=== PATIENT | female | born 1975 | race Caucasian/White ===

== ENCOUNTER 2020-02-28 12:48 | Outpatient (REF) | payer OTHER, SELFPAY ==
--- NOTE | 2020-02-28 12:51 | MM_ITS ---
EXAMINATION: MM SCREENING DIGITAL BREAST TOMOSYNTHESIS, BILATERAL CLINICAL INFORMATION: Screening. Asymptomatic. The lifetime risk of breast cancer based on the Tyrer-Cuzick Model is 7%. COMPARISON: Mammography: 06/15/2018, 05/02/2017, 01/22/2014 TECHNIQUE: Digital breast tomosynthesis is performed in both the craniocaudal and mediolateral oblique views along with computer-aided detection (CAD). Synthesized 2D images are generated from the tomosynthesis. FINDINGS: There are scattered areas of fibroglandular density (ACR BI-RADS breast composition Category b). Parenchymal pattern is similar to prior studies. There are scattered asymmetries posterior and central upper left breast which are stable from prior exams. There is no developing density or interval mass or architectural abnormality. Neither breast shows abnormal calcifications. The axilla and skin contours are unremarkable. MM/MM tomosynthesis screening BI IMPRESSION: No significant changes from prior studies. ASSESSMENT: BI-RADS 2: Benign RECOMMENDATION: Routine annual mammography screening. This patient's information was entered into a reminder system with a target due date for their next mammogram.
== END 2020-02-28 12:49 | disposition home or self-care (01) ==
LOC: HO.MAMMO 12:48
PROVIDERS: PCP Internal Medicine; Visit Provider Internal Medicine
DX: Z12.31 Encounter for screening mammogram for malignant neoplasm of breast (principal)
CPT/HCPCS: 77063; 77067

== ENCOUNTER 2021-03-23 15:25 | Outpatient (REF) | payer OTHER, SELFPAY ==
--- NOTE | ~2021-03-23 | MM_ITS ---
EXAMINATION: MM SCREENING DIGITAL MAMMOGRAPHY, BILATERAL CLINICAL INFORMATION: Screening. Asymptomatic. The lifetime risk of breast cancer based on the Tyrer-Cuzick Model is 6%. COMPARISON: Mammography: 02/28/2020, 06/15/2018, 05/02/2017, 01/22/2014 TECHNIQUE: Digital mammography is performed in craniocaudal and mediolateral oblique views along with computer-aided detection (CAD). Additional right MLO view is provided. FINDINGS: There are scattered areas of fibroglandular density (ACR BI-RADS breast composition Category b). There are no significant masses, abnormal calcifications, or other abnormalities. Parenchymal pattern is similar to prior studies. There is no developing density or architectural abnormality. Scattered bilateral benign parenchymal asymmetries are stable. The axilla and skin contours are unremarkable. No significant changes. MM/MM tomosynthesis screening BI IMPRESSION: No mammographic evidence of malignancy. ASSESSMENT: BI-RADS 2: Benign RECOMMENDATION: Routine annual mammography screening. This patient's information was entered into a reminder system with a target due date for their next mammogram.
== END 2021-03-23 15:26 | disposition home or self-care (01) ==
LOC: HO.MAMMO 15:25
PROVIDERS: PCP Internal Medicine; Visit Provider Internal Medicine
DX: Z12.31 Encounter for screening mammogram for malignant neoplasm of breast (principal)
CPT/HCPCS: 77063; 77067

== ENCOUNTER 2022-03-25 12:44 | Outpatient (REF) | payer OTHER, SELFPAY ==
--- NOTE | ~2022-03-25 | MM_ITS ---
EXAMINATION: MM SCREENING DIGITAL BREAST TOMOSYNTHESIS, BILATERAL CLINICAL INFORMATION: Screening. Asymptomatic. The lifetime risk of breast cancer based on the Tyrer-Cuzick Model is 6.0%. COMPARISON: Mammography: March 23, 2021 and studies dating back to January 22, 2014 TECHNIQUE: Digital breast tomosynthesis is performed in both the craniocaudal and mediolateral oblique views along with computer-aided detection (CAD). Synthesized 2D images are generated from the tomosynthesis. FINDINGS: The breasts are heterogeneously dense, which may obscure small masses (ACR BI-RADS breast composition Category c). There are no significant masses, abnormal calcifications, or other abnormalities. MM/MM tomosynthesis screening BI IMPRESSION: No significant changes ASSESSMENT: BI-RADS 1: Negative RECOMMENDATION: Routine annual mammography screening. This patient's information was entered into a reminder system with a target due date for their next mammogram.
== END 2022-03-25 12:45 | disposition home or self-care (01) ==
LOC: HO.MAMMO 12:44
PROVIDERS: PCP Internal Medicine; Visit Provider Internal Medicine
DX: Z12.31 Encounter for screening mammogram for malignant neoplasm of breast (principal)
CPT/HCPCS: 77063; 77067

== ENCOUNTER → 2023-04-06 15:45 | Outpatient (BNV) | payer OTHER, SELFPAY | PROVIDERS: Visit Provider Radiology Diagnostic Radiology | DX: Z12.31 Encounter for screening mammogram for malignant neoplasm of breast (principal) | CPT/HCPCS: 77063; 77067 ==

== ENCOUNTER 2023-04-06 15:50 | Outpatient (REF) | payer OTHER, SELFPAY | END 2023-04-06 15:51 | disposition home or self-care (01) | LOC: HO.MAMMO 15:50 | PROVIDERS: Visit Provider Internal Medicine | DX: Z12.31 Encounter for screening mammogram for malignant neoplasm of breast (principal) | CPT/HCPCS: 77063; 77067 ==

== ENCOUNTER 2023-07-19 08:48 | Outpatient (AMB) | payer OTHER, SELFPAY ==
[2023-07-19 08:52] VITALS: BP 126/78; PULSE 78; O2SAT 95; BMI 25.6
--- NOTE | 2023-07-19 08:52 | MHC.PC.OV ---
Vital Signs 07/19/23 08:52 Height 5 ft 3 in Weight 144 lb 8 oz BMI 25.6 BP 126/78 Blood Pressure Location Rt brachial Position Sitting Pulse 78 Pulse Source Pulse Oximeter Pulse Oximetry (%) 95 Oxygen Delivery Method Room Air Intake Visit Reasons: Annual PE Allergies ibuprofen Allergy (Unknown, Verified 07/19/23 08:53) Unknown buspirone [From BuSpar] Adverse Reaction (Verified 07/19/23 08:53) Irritability Medication List - Last Reconciled 07/19/23 by Amber Green MD cyclobenzaprine 5 mg PO BEDTIME PRN 90 days lorazepam 0.5 mg PO DAILY PRN 30 days Tobacco use date assessed: 07/19/23 Dental Screening Dental Screen Date: 07/19/23 Did you have a dental visit in the last 12 months?: Yes Did you have a dental problem in the last 6 months where you did not have access to dental care?: No Was dental information given to patient?: Patient has dentist HPI Annual PE HPI Details Patient is a 47-year-old female came in today for physical exam OBGYN is at [facility] patient will have visit this year Mammogram was March of this year Colonoscopies due, referral placed Patient offer no new complaints Lab order placed to be done today nonfasting as per patient's request [facility] Medical History Anxiety, generalized Kidney disease 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 Mother No problems noted. Maternal Grandfather Cardiac arrest Maternal Grandmother Diabetes mellitus Paternal Grandmother History of heart attack Heart problem Paternal Grandfather Colon cancer Brother No problems noted. Sister No problems noted. Son No problems noted. Social History Housing: House Alcohol intake: current Alcohol intake frequency: a few times a week Patient Tobacco Use Status: Current everyday Tobacco user Tobacco use type: Cigarette Cigarette Packs Per Day: 1 Cigarettes Per Day: 20 Years Smoked: 20 e-Cigarette/Vaping Use: Never Used service: No Current occupational status: employed Cognitive needs: No Hearing needs: No Vision needs: No Questionnaire PHQ-9 Over the last 2 weeks, how often have you been bothered by any of the following problems? 1. Little interest or pleasure in doing things: not at all 2. Feeling down, depressed, or hopeless: not at all 3. Trouble falling or staying asleep, or sleeping too much: not at all 4. Feeling tired or having little energy: not at all 5. Poor appetite or overeating: not at all 6. Feeling bad about yourself - or that you are a failure or have let yourself or your family down: not at all 7. Trouble concentrating on things, such as reading the newspaper or watching television: not at all 8. Moving or speaking so slowly that other people could have noticed. Or the opposite - being so fidgety or restless that you have been moving around a lot more than usual: not at all 9. Thoughts that you would be better off or of hurting yourself in some way: not at all Total score: 0 Depression Screening Interpretation: Negative Depression Screening Done: Yes 14333 - PHQ-9 Billing: Yes Source: Developed by Drs. Cristobal Langston, Mary Francois, Fish Rodriguez and colleagues, with an educational pool from [employer]. Thrive Questionnaire Date Thrive assessed: 07/19/23 I am a: Patient What is your living situation today?: I have a steady place to live Within the past 12 months, did the food you bought not last and you didn't have the money to get more?: Never true Within the past 12 months, did you worry whether your food would run out before you got money to buy more?: Never true Do you have trouble paying for medicines?: No Do you have trouble getting transportation to medical appointments?: No Do you have trouble paying your heating and electricity bill?: No Do you have trouble taking care of your child, family member or friend?: No Do you have trouble with day-to-day activities such as bathing, preparing meals, shopping, managing finances, etc.?: No Are you currently unemployed and looking for a job?: No Are you interested in more education?: No Please select the resources that you would like help with: None Currently or been in a relationship where the following occur: no concerns reported THRIVE Score: 0 AUDIT C Alcohol Use Questionnaire (AUDIT-C) 1. How often do you have a drink containing alcohol?: Monthly or less 2. How many drinks containing alcohol do you have on a typical day when you are drinking?: 1 or 2 3. How often do you have six or more drinks on one occasion?: Never Total Score: 1 Score Reviewed/Action Taken: Yes JUDIE-7 AMB Questionnaire JUDIE-7 Date JUDIE - 7 assessed: 07/19/23 Feeling nervous, anxious, or on edge: 0 = Not at all Not being able to stop or control worryin = Not at all Worrying too much about different things: 0 = Not at all Trouble relaxin = Not at all Being so restless that it is hard to sit still: 0 = Not at all Becoming easily annoyed or irritable: 0 = Not at all Feeling afraid as if something awful might happen: 0 = Not at all Total JUDIE-7 score (0-4 normal; 5-9 mild; 10-14 moderate; 15-21 severe): 0 Source: Developed by Drs. Cristobal Langston, Mary Francois, Fish Rodriguez and colleagues, with an educational pool from [employer]. JUDIE-7 Assessment Billing JUDIE-7 Assessment Tool: JUDIE-7 Assessment 46153 Review of Systems Const Denies chills, Denies fever(s) and Denies headache(s) Eyes Denies blurry vision ENT Denies headache(s), Denies nasal discharge, Denies nasal obstruction, Denies odynophagia and Denies sinus pain Card Denies chest pain at rest and Denies chest pain with activity Resp Denies cough and Denies hemoptysis GI Denies diarrhea, Denies odynophagia, Denies vomiting and Denies hematemesis Reports as per HPI Musc Denies abnormal gait Skin/Breast Reports as per HPI Neuro Denies Neuro-related abnormal movements, Denies Abnormal speech present, Denies abnormal gait, Denies headache(s) and Denies Sensory deficit (Neuro) Psych Denies mood swings and Denies paranoia Endo Reports as per HPI Antonio/Lymph Reports as per HPI Aller/Immun Reports as per HPI Physical exam (Primary Care) Vital Signs: Last Vital Signs Pulse 78 07/19/23 08:52 BP 126/78 07/19/23 08:52 Pulse Ox 95 07/19/23 08:52 Oxygen Delivery Method Room Air 07/19/23 08:52 BMI result Body Mass Index 25.6 Tobacco/Smoking Status: Tobacco use Status Tobacco use date assessed 07/19/23 07/19/23 08:54 Patient Tobacco Use Status Current everyday Tobacco 07/19/23 08:54 Tobacco use type Cigarette 07/19/23 08:54 e-Cigarette/Vaping Use Never Used 07/19/23 08:54 PHQ-9: PHQ-9 Score PHQ-9: Total score 0 07/19/23 09:12 Depression Screening Interpretation: Negative Thrive Assessment: Date of Thrive Assessment Date Thrive assessed 07/19/23 07/19/23 09:12 Currently or been in a relationship where the following occur: no concerns reported Const General: cooperative, comfortable and no acute distress Orientation/consciousness: patient oriented x3 HENMT Head: Yes normocephalic and Yes atraumatic Eyes General: appearance normal, both eyes and all related structures Pupils: Equal, round and reactive pupils present EOM: EOMs intact bilaterally Neck Neck: Yes supple and No lymphadenopathy Thyroid: Thyroid normal Lymphatic: no lymphadenopathy noted Resp Effort & Inspection: normal respiratory effort and able to speak in complete sentences Auscultation: clear to auscultation bilaterally Cardio Heart sounds: S1 normal heart sound present and S2 normal heart sound present GI Palpation (GI): Soft to palpation and nontender Auscultation: normal bowel sounds General: Yes no CVA tenderness Back/Spine/Pelvis Back: no CVA tenderness Skin General skin exam: elasticity normal and turgor normal Neuro General: patient oriented x3 and gait normal Cranial nerves: Yes Equal, round and reactive pupils present Speech: No Abnormal speech present Sensory Exam: No Sensory deficit (Neuro) Coordination: tandem gait normal and Romberg test negative Extrem General: Yes normal exam except as noted and No edema Assessment and Plan Assessment & Plan (1) Encounter for general adult medical examination without abnormal findings: Code(s): Z00.00 - Encounter for general adult medical examination without abnormal findings Plan Patient is a 47-year-old female came in today for physical exam OBGYN is at [facility] patient will have visit this year Mammogram was March of this year Colonoscopies due, referral placed Patient offer no new complaints Lab order placed to be done today nonfasting as per patient's request Orders: Orders Comprehensive Met. Panel Today Z00.00 - Encounter for general adult medical examination without abnormal findings Vitamin D 25-OH (D2 and D3) Today Z00.00 - Encounter for general adult medical examination without abnormal findings LDL Cholesterol Direct Today Z00.00 - Encounter for general adult medical examination without abnormal findings Complete Blood Count Auto Diff Today Z00.00 - Encounter for general adult medical examination without abnormal findings Referrals Gastroenterology Referral Z12.11 - Encounter for screening for malignant neoplasm of colon Medications: Discontinued cyclobenzaprine Discontinued Reason: Patient Completed Course 5 mg PO BEDTIME 90 days PRN 90 tabs 0RF muscle spasm M54.9 - Dorsalgia, unspecified lorazepam Discontinued Reason: Patient Completed Course 0.5 mg PO DAILY 30 days PRN 30 tabs 1RF anxiety Coding Level of Care Code Est Pt Prev Care 40-64y(51652) Diagnoses Encounter for general adult medical examination without abnormal findings Z00.00 Additional Codes JUDIE-7 Assessment Billing - JUDIE-7 Assessment Tool: JUDIE-7 Assessment 43604 ([id number])
== END 2023-07-19 09:08 | disposition home or self-care (01) ==
PROVIDERS: PCP Internal Medicine; Visit Provider Internal Medicine
DX: Z00.00 Encounter for general adult medical examination without abnormal findings (principal)
CPT/HCPCS: 99396

== ENCOUNTER 2023-07-19 09:08 | Outpatient (REF) | payer OTHER, SELFPAY ==
[2023-07-19 10:47] LABS: MANUAL DIFF FLAG NO
[2023-07-19 10:57] LABS: Basophils Absolute Auto 0.1 X10*3/uL (0.0-0.2); Basophils Percent Auto 0.7 % (0-2); Eosinophils Absolute Auto 0.3 X10*3/uL (0.0-0.4); Eosinophils Percent Auto 2.1 % (0-4); Hematocrit 44.3 % (37.0-47.0); Hemoglobin 14.5 g/dl (12.0-16.0); Imm Gran Abs Auto 0.05 X10*3/uL (0.00-0.03); Imm Gran Pct Auto 0.4 % (0.0-0.4); Lymphocytes Absolute Auto 2.2 X10*3/uL (1.2-4.9); Lymphocytes Percent Auto 18.8 % (20-40); Mean Corpuscular HGB Conc 32.7 g/dl (31.0-35.0); Mean Corpuscular Hemoglobin 30.6 pg (27.0-33.0); Mean Corpuscular Volume 93.5 fL (80.0-98.0); Monocytes Absolute Auto 0.6 X10*3/uL (0.1-1.2); Neutrophils Absolute Auto 8.5 x10*3/uL (2.0-8.3); Platelet Count 344 X10*3/uL (160-400); Red Blood Count 4.74 X10*6/uL (4.20-5.50); Red Cell Distribution Width 13.1 % (11.0-16.0); White Blood Count 11.7 X10*3/uL (4.8-10.8)
[2023-07-19 11:14] LABS: Alanine Aminotransferase 18 U/L (0-31); Albumin Level 4.5 g/dL (3.5-5.0); Alkaline Phosphatase 96 U/L (39-117); Anion Gap 13 (12-20); Aspartate Amino Transferase 20 U/L (5-31); Bilirubin Total 0.3 mg/dL (0.0-1.0); Blood Urea Nitrogen 10 mg/dL (9-16); Calcium 9.7 mg/dL (8.4-10.2); Carbon Dioxide 26 mmol/L (22-29); Chloride 108 mmol/L (96-108); Estimated Glomerular Filt Rate 56; Glucose Random 102 mg/dL (60-115); Potassium 4.8 mmol/L (3.3-5.1); Sodium 142 mmol/L (135-145); Total Protein 7.8 g/dL (6.5-8.0)
[2023-07-21 16:08] LABS: LDL Cholesterol Direct 187 mg/dL (<100)
[2023-07-24 16:18] LABS: Vitamin D 25-OH, D2 <4 ng/mL; Vitamin D 25-OH, D3 41 ng/mL; Vitamin D 25-OH, Total 41 ng/mL (30-100)
== END 2023-07-19 09:09 | disposition home or self-care (01) ==
LOC: HO.HMGCLDS 09:08
PROVIDERS: PCP Internal Medicine; Visit Provider Internal Medicine
DX: Z00.00 Encounter for general adult medical examination without abnormal findings (principal)
CPT/HCPCS: 36415; 80053; 82306; 83721; 85025

== ENCOUNTER 2023-12-20 13:01 | Outpatient (AMB) | payer OTHER, SELFPAY ==
[2023-12-20 13:03] VITALS: BP 102/72; PULSE 85; O2SAT 96; BMI 25.5
--- NOTE | 2023-12-20 13:03 | MHC.PC.OV ---
Vital Signs 12/20/23 13:03 Height 5 ft 3 in Weight 144 lb BMI 25.5 BP 102/72 Blood Pressure Location Lt brachial Position Sitting Pulse 85 Pulse Source Pulse Oximeter Pulse Oximetry (%) 96 Oxygen Delivery Method Room Air Intake Visit Reasons: lump Allergies ibuprofen Allergy (Unknown, Verified 12/20/23 13:07) Unknown buspirone [From BuSpar] Adverse Reaction (Verified 12/20/23 13:07) Irritability Medication List - Last Reconciled 12/20/23 by Amber Green MD No Known Home Meds Tobacco use date assessed: 12/20/23 Dental Screening Dental Screen Date: 07/19/23 HPI lump HPI Details Patient is a 48-year-old female came in today to be evaluated for few medical problems Patient says that for the past few weeks she is feeling extremely tired and fatigued To the point that 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 Mother No problems noted. Maternal Grandfather Cardiac arrest Maternal Grandmother Diabetes mellitus Paternal Grandmother History of heart attack Heart problem Paternal Grandfather Colon cancer Brother No problems noted. Sister No problems noted. Son No problems noted. Social History Housing: House Alcohol intake: current Alcohol intake frequency: a few times a week Patient Tobacco Use Status: Current everyday Tobacco user Tobacco use type: Cigarette Cigarette Packs Per Day: 1 Cigarettes Per Day: 20 Years Smoked: 20 e-Cigarette/Vaping Use: Never Used service: No Current occupational status: employed Cognitive needs: No Hearing needs: No Vision needs: No Questionnaire PHQ-9 Over the last 2 weeks, how often have you been bothered by any of the following problems? 1. Little interest or pleasure in doing things: not at all 2. Feeling down, depressed, or hopeless: not at all 3. Trouble falling or staying asleep, or sleeping too much: nearly every day 4. Feeling tired or having little energy: nearly every day 5. Poor appetite or overeating: not at all 6. Feeling bad about yourself - or that you are a failure or have let yourself or your family down: not at all 7. Trouble concentrating on things, such as reading the newspaper or watching television: not at all 8. Moving or speaking so slowly that other people could have noticed. Or the opposite - being so fidgety or restless that you have been moving around a lot more than usual: not at all 9. Thoughts that you would be better off or of hurting yourself in some way: not at all Total score: 6 Depression Screening Interpretation: Negative Depression Screening Done: Yes 35807 - PHQ-9 Billing: Yes Source: Developed by Drs. Cristobal Langston, Mary Francois, Fish Rodriguez and colleagues, with an educational pool from [employer]. Thrive Questionnaire Date Thrive assessed: 07/19/23 I am a: Patient What is your living situation today?: I have a steady place to live Within the past 12 months, did the food you bought not last and you didn't have the money to get more?: Never true Within the past 12 months, did you worry whether your food would run out before you got money to buy more?: Never true Do you have trouble paying for medicines?: No Do you have trouble getting transportation to medical appointments?: No Do you have trouble paying your heating and electricity bill?: No Do you have trouble taking care of your child, family member or friend?: No Do you have trouble with day-to-day activities such as bathing, preparing meals, shopping, managing finances, etc.?: No Are you currently unemployed and looking for a job?: No Are you interested in more education?: No Please select the resources that you would like help with: None Currently or been in a relationship where the following occur: No concerns reported THRIVE Score: 0 AUDIT C Alcohol Use Questionnaire (AUDIT-C) 1. How often do you have a drink containing alcohol?: 2-4 times a month 2. How many drinks containing alcohol do you have on a typical day when you are drinking?: 1 or 2 3. How often do you have six or more drinks on one occasion?: Never Total Score: 2 JUDIE-7 AMB Questionnaire JUDIE-7 Date JUDIE - 7 assessed: 07/19/23 Feeling nervous, anxious, or on edge: 0 = Not at all Not being able to stop or control worryin = Not at all Worrying too much about different things: 0 = Not at all Trouble relaxin = Not at all Being so restless that it is hard to sit still: 0 = Not at all Becoming easily annoyed or irritable: 0 = Not at all Feeling afraid as if something awful might happen: 0 = Not at all Total JUDIE-7 score (0-4 normal; 5-9 mild; 10-14 moderate; 15-21 severe): 0 Source: Developed by Drs. Cristobal Langston, Mary Francois, Fish Rodriguez and colleagues, with an educational pool from [employer]. Review of Systems Const Denies chills and Denies fever(s) ENT Denies epistaxis and Denies nasal discharge Resp Denies chest congestion, Denies cough and Denies hemoptysis GI Denies diarrhea and Denies nausea Skin/Breast Denies rash Neuro Reports no additional complaints Psych Reports no additional complaints Endo Reports no additional complaints Physical exam (Primary Care) Vital Signs: Last Vital Signs Pulse 85 12/20/23 13:03 BP 102/72 12/20/23 13:03 Pulse Ox 96 12/20/23 13:03 Oxygen Delivery Method Room Air 12/20/23 13:03 BMI result Body Mass Index 25.5 Tobacco/Smoking Status: Tobacco use Status Tobacco use date assessed 12/20/23 12/20/23 13:08 Patient Tobacco Use Status Current everyday Tobacco 12/20/23 13:08 Tobacco use type Cigarette 12/20/23 13:08 e-Cigarette/Vaping Use Never Used 12/20/23 13:08 PHQ-9: PHQ-9 Score PHQ-9: Total score 6 12/20/23 13:20 Depression Screening Interpretation: Negative Thrive Assessment: Date of Thrive Assessment Date Thrive assessed 07/19/23 12/20/23 13:08 Currently or been in a relationship where the following occur: No concerns reported Const General: cooperative, comfortable and no acute distress Orientation/consciousness: patient oriented x3 HENMT Head: Yes normocephalic Eyes General: appearance normal, both eyes and all related structures Neck Neck: Yes supple Resp Effort & Inspection: normal respiratory effort, no cough and no stridor Cardio Rhythm: regular rhythm Heart sounds: S1 normal heart sound present and S2 normal heart sound present GI Inspection: Yes normal to inspection Palpation (GI): Soft to palpation, nontender and no guarding Auscultation: normal bowel sounds Skin General skin exam: turgor normal Neuro General: patient oriented x3, tone normal and moves all extremities Extrem Right lower extremity: no edema Left lower extremity: no edema Coding Level of Care Code Est Pt Level 4 (45899) Diagnoses Chronic fatigue R53.82 Fatigue type: chronic, unspecified Lack of energy R53.83 Esophageal dysphagia R13.19 Dysphagia type: esophageal phase Burning in the chest R07.89 History of gastroesophageal reflux (GERD) Z87.19 Assessment & Plan Assessment & Plan (1) Fatigue: Code(s): R53.83 - Other fatigue Category: Medical Qualifiers: Fatigue type: chronic, unspecified Qualified Code(s): R53.82 - Chronic fatigue, unspecified (2) Lack of energy: Code(s): R53.83 - Other fatigue Category: Medical (3) Difficulty swallowing: Code(s): R13.10 - Dysphagia, unspecified Category: Medical Qualifiers: Dysphagia type: esophageal phase Qualified Code(s): R13.19 - Other dysphagia (4) Burning in the chest: Code(s): R07.89 - Other chest pain Category: Medical (5) History of gastroesophageal reflux (GERD): Code(s): Z87.19 - Personal history of other diseases of the digestive system Category: Medical Plan Patient is a 48-year-old female came in today to be evaluated for few medical problems Patient says that for the past few weeks she is feeling extremely tired and fatigued To the point that 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 [facility] as per patient's request She is to return in 2 weeks for follow-up appointment Orders: Orders Complete Blood Count Auto Diff Today R07.89 - Other chest pain, R13.10 - Dysphagia, unspecified, R53.83 - Other fatigue, Z87.19 - Personal history of other diseases of the digestive system TSH reflex Free T4 Today R07.89 - Other chest pain, R13.10 - Dysphagia, unspecified, R53.83 - Other fatigue, Z87.19 - Personal history of other diseases of the digestive system Vitamin D 25-OH (D2 and D3) Today R07.89 - Other chest pain, R13.10 - Dysphagia, unspecified, R53.83 - Other fatigue, Z87.19 - Personal history of other diseases of the digestive system Zinc Today R07.89 - Other chest pain, R13.10 - Dysphagia, unspecified, R53.83 - Other fatigue, Z87.19 - Personal history of other diseases of the digestive system Lipid Panel Today R07.89 - Other chest pain, R13.10 - Dysphagia, unspecified, R53.83 - Other fatigue, Z87.19 - Personal history of other diseases of the digestive system Hemoglobin A1c Today R07.89 - Other chest pain, R13.10 - Dysphagia, unspecified, R53.83 - Other fatigue, Z87.19 - Personal history of other diseases of the digestive system Magnesium Today R07.89 - Other chest pain, R13.10 - Dysphagia, unspecified, R53.83 - Other fatigue, Z87.19 - Personal history of other diseases of the digestive system Ferritin Today R07.89 - Other chest pain, R13.10 - Dysphagia, unspecified, R53.83 - Other fatigue, Z87.19 - Personal history of other diseases of the digestive system Vitamin B12 Today R07.89 - Other chest pain, R13.10 - Dysphagia, unspecified, R53.83 - Other fatigue, Z87.19 - Personal history of other diseases of the digestive system Comprehensive [place]. Panel Fast Today R07.89 - Other chest pain, R13.10 - Dysphagia, unspecified, R53.83 - Other fatigue, Z87.19 - Personal history of other diseases of the digestive system Referrals Gastroenterology Referral R07.89 - Other chest pain, R13.10 - Dysphagia, unspecified Medications: New sucralfate (Carafate) swish in mouth and swallow; use after food/drink 10 mL PO TID 15 days 450 mL 0RF pantoprazole 40 mg PO DAILY 90 tabs 0RF
== END 2023-12-20 13:23 | disposition home or self-care (01) ==
LOC: HO.HMCC 13:02
PROVIDERS: PCP Internal Medicine; Visit Provider Internal Medicine
DX: R53.82 Chronic fatigue, unspecified (principal); R53.83 Other fatigue; R13.19 Other dysphagia; R07.89 Other chest pain; Z87.19 Personal history of other diseases of the digestive system

== ENCOUNTER → 2023-12-20 13:01 | Outpatient (BNVA) | payer OTHER, SELFPAY | PROVIDERS: PCP Internal Medicine; Visit Provider Internal Medicine ==

== ENCOUNTER 2023-12-22 07:31 | Outpatient (REF) | payer OTHER, SELFPAY ==
[2023-12-22 10:24] LABS: MANUAL DIFF FLAG NO
[2023-12-22 10:36] LABS: Basophils Absolute Auto 0.1 X10*3/uL (0.0-0.2); Basophils Percent Auto 0.9 % (0-2); Eosinophils Absolute Auto 0.2 X10*3/uL (0.0-0.4); Eosinophils Percent Auto 2.7 % (0-4); Hematocrit 43.7 % (37.0-47.0); Hemoglobin 14.1 g/dl (12.0-16.0); Imm Gran Abs Auto 0.01 X10*3/uL (0.00-0.03); Imm Gran Pct Auto 0.1 % (0.0-0.4); Lymphocytes Absolute Auto 2.3 X10*3/uL (1.2-4.9); Mean Corpuscular HGB Conc 32.3 g/dl (31.0-35.0); Mean Corpuscular Hemoglobin 29.8 pg (27.0-33.0); Mean Corpuscular Volume 92.4 fL (80.0-98.0); Monocytes Absolute Auto 0.5 X10*3/uL (0.1-1.2); Neutrophils Absolute Auto 4.5 x10*3/uL (2.0-8.3); Neutrophils Percent Auto 60.3 % (45-73); Platelet Count 348 X10*3/uL (160-400); Red Blood Count 4.73 X10*6/uL (4.20-5.50); Red Cell Distribution Width 13.5 % (11.0-16.0); White Blood Count 7.5 X10*3/uL (4.8-10.8)
[2023-12-22 11:04] LABS: Estimated Average Glucose 108 mg/dL; Hemoglobin A1C 124.5404 umol/L; Hemoglobin A1c % 5.4 % (<6.0); Total Hemoglobin (HGBA1C) 3529.2477 umol/L
[2023-12-22 11:24] LABS: Ferritin 125 ng/mL (10-250); Magnesium 2.4 mg/dL (1.6-2.6); TSH reflex Free T4 0.96 uIU/mL (0.32-4.0)
[2023-12-22 11:44] LABS: Vitamin B12 462 pg/mL (200-900)
[2023-12-26 18:04] LABS: Zinc 63 mcg/dL (60-130)
[2023-12-28 14:23] LABS: Vitamin D 25-OH, D2 <4 ng/mL; Vitamin D 25-OH, D3 36 ng/mL; Vitamin D 25-OH, Total 36 ng/mL (30-100)
== END 2023-12-22 07:32 | disposition home or self-care (01) ==
LOC: HO.HMGCLDS 07:31
PROVIDERS: PCP Internal Medicine; Visit Provider Internal Medicine
DX: R53.83 Other fatigue (principal); R13.10 Dysphagia, unspecified; R07.89 Other chest pain; Z87.19 Personal history of other diseases of the digestive system; Z13.1 Encounter for screening for diabetes mellitus
CPT/HCPCS: 36415; 82306; 82607; 82728; 83036; 83735; 84443; 84630; 85025

== ENCOUNTER 2023-12-23 07:00 | Outpatient (REF) | payer OTHER, SELFPAY ==
[2023-12-23 11:36] LABS: Alanine Aminotransferase 23 U/L (0-31); Albumin Level 4.3 g/dL (3.5-5.0); Alkaline Phosphatase 76 U/L (39-117); Anion Gap 12 (12-20); Aspartate Amino Transferase 29 U/L (5-31); Bilirubin Total 0.5 mg/dL (0.0-1.0); Blood Urea Nitrogen 12 mg/dL (9-16); Calcium 10.1 mg/dL (8.4-10.2); Carbon Dioxide 27 mmol/L (22-29); Chloride 106 mmol/L (96-108); Cholesterol 261 mg/dL (<200); Estimated Glomerular Filt Rate > 60; Glucose Fasting 102 mg/dL (60-99); HDL Cholesterol 37 mg/dL (>40); LDL Cholesterol Calculated 201 mg/dL (<100); Potassium 4.5 mmol/L (3.3-5.1); Sodium 140 mmol/L (135-145); Total Protein 7.4 g/dL (6.5-8.0); Triglycerides 118 mg/dL (<150)
== END 2023-12-23 07:01 | disposition home or self-care (01) ==
LOC: HO.HMGCLDS 07:00
PROVIDERS: PCP Internal Medicine; Visit Provider Internal Medicine
DX: R53.83 Other fatigue (principal); R07.89 Other chest pain; Z87.19 Personal history of other diseases of the digestive system; R13.10 Dysphagia, unspecified
CPT/HCPCS: 36415; 80053; 80061

== ENCOUNTER 2023-12-28 08:37 | Outpatient (AMB) | payer OTHER, SELFPAY ==
--- NOTE | 2023-12-28 09:04 | A.OFFPC_ITS ---
Intake Visit Reasons: Discuss Results Allergies ibuprofen Allergy (Unknown, Verified 12/28/23 09:05) Unknown buspirone [From BuSpar] Adverse Reaction (Verified 12/28/23 09:05) Irritability Medication List - Last Reconciled 12/28/23 by Amber Green MD pantoprazole 40 mg PO DAILY sucralfate (Carafate) 10 mL PO TID 15 days Tobacco use date assessed: 12/28/23 Dental Screening Dental Screen Date: 12/28/23 Did you have a dental visit in the last 12 months?: Yes Did you have a dental problem in the last 6 months where you did not have access to dental care?: No Was dental information given to patient?: Patient has dentist HPI Discuss Results HPI Details Patient is a 48-year-old female this is a telemedicine visit to go over labs Her LDL came back at 201 Lab values discussed with the patient and it significance She is also prediabetic She agreed to be started on small dose of statin Atorvastatin 10 mg with Q 10 sent She is to repeat labs again in 2 months [facility] Medical History Anxiety, generalized Kidney disease 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 Mother No problems noted. Maternal Grandfather Cardiac arrest Maternal Grandmother Diabetes mellitus Paternal Grandmother History of heart attack Heart problem Paternal Grandfather Colon cancer Brother No problems noted. Sister No problems noted. Son No problems noted. Social History Housing: House Alcohol intake: current Alcohol intake frequency: a few times a week Patient Tobacco Use Status: Current everyday Tobacco user Tobacco use type: Cigarette Cigarette Packs Per Day: 1 Cigarettes Per Day: 20 Years Smoked: 20 e-Cigarette/Vaping Use: Never Used service: No Current occupational status: employed Cognitive needs: No Hearing needs: No Vision needs: No Questionnaire Thrive Questionnaire Date Thrive assessed: 07/19/23 AUDIT C Alcohol Use Questionnaire (AUDIT-C) 1. How often do you have a drink containing alcohol?: 2-4 times a month 2. How many drinks containing alcohol do you have on a typical day when you are drinking?: 1 or 2 3. How often do you have six or more drinks on one occasion?: Never Total Score: 2 Score Reviewed/Action Taken: Yes JUDIE-7 AMB Questionnaire JUDIE-7 Date JUDIE - 7 assessed: 07/19/23 Source: Developed by Drs. Cristobal Langston, Mary Francois, Fish Rodriguez and colleagues, with an educational pool from [employer]. Review of Systems Const Denies chills and Denies fever(s) ENT Denies epistaxis and Denies nasal discharge Card Denies chest pain Resp Denies chest congestion, Denies cough and Denies hemoptysis GI Denies diarrhea and Denies nausea Skin/Breast Denies rash Neuro Reports no additional complaints Psych Reports no additional complaints Endo Reports no additional complaints Physical exam (Primary Care) Tobacco/Smoking Status: Tobacco use Status Tobacco use date assessed 12/28/23 12/28/23 09:05 Patient Tobacco Use Status Current everyday Tobacco 12/28/23 09:05 Tobacco use type Cigarette 12/28/23 09:05 e-Cigarette/Vaping Use Never Used 12/28/23 09:05 Thrive Assessment: Date of Thrive Assessment Date Thrive assessed 07/19/23 12/28/23 09:05 Telehealth Telehealth Telehealth Platform: Relevant e-solution Location of provider rendering services: practice address Location of patient: address on file Patient Identification confirmed using: Name, : Yes Telehealth method: voice only Patient verbally consented to treatment: Yes Patient verbally consented to billing insurance company: Yes Patient informed of any privacy concerns related to visit: Yes Minutes spent on Phone/Video with Pt.: 13 Coding Level of Care Code Tele Est Pt Level 3 (63188) Diagnoses Lipid disorder E78.9 Prediabetes R73.03 Assessment & Plan Assessment & Plan (1) Lipid disorder: Code(s): E78.9 - Disorder of lipoprotein metabolism, unspecified Category: Medical (2) Prediabetes: Code(s): R73.03 - Prediabetes Category: Medical Plan Patient is a 48-year-old female this is a telemedicine visit to go over labs Her LDL came back at 201 Lab values discussed with the patient and it significance She is also prediabetic She agreed to be started on small dose of statin Atorvastatin 10 mg with Q 10 sent She is to repeat labs again in 2 months Orders: Orders Comprehensive [place]. Panel Fast 12/28/23 E78.9 - Disorder of lipoprotein metabolism, unspecified Lipid Panel 12/28/23 E78.9 - Disorder of lipoprotein metabolism, unspecified Medications: New coenzyme Q10 50 mg PO DAILY 90 caps 0RF atorvastatin 10 mg PO BEDTIME 90 tabs 0RF
== END 2023-12-28 12:07 | disposition home or self-care (01) ==
LOC: HO.HMCC 08:37
PROVIDERS: PCP Internal Medicine; Visit Provider Internal Medicine
DX: E78.9 Disorder of lipoprotein metabolism, unspecified (principal); R73.03 Prediabetes

== ENCOUNTER → 2023-12-28 08:37 | Outpatient (BNVA) | payer OTHER, SELFPAY | PROVIDERS: PCP Internal Medicine; Visit Provider Internal Medicine ==

== ENCOUNTER → 2024-03-29 10:28 | Outpatient (BNVA) | payer OTHER, SELFPAY | PROVIDERS: PCP Internal Medicine; Visit Provider Internal Medicine | DX: E78.5 Hyperlipidemia, unspecified (principal); K59.00 Constipation, unspecified; N05.1 Unspecified nephritic syndrome with focal and segmental glomerular lesions; R53.83 Other fatigue; Z87.19 Personal history of other diseases of the digestive system; Z79.899 Other long term (current) drug therapy | CPT/HCPCS: 96127 ==

== ENCOUNTER → 2024-03-29 10:28 | Outpatient (AMB) | payer OTHER, SELFPAY | END | disposition home or self-care (01) | PROVIDERS: PCP Internal Medicine; Visit Provider Internal Medicine ==

== ENCOUNTER 2024-07-26 09:50 | Outpatient (AMB) | payer OTHER, SELFPAY ==
--- NOTE | 2024-07-26 09:51 | A.OFFPC_ITS ---
Vital Signs 07/26/24 09:52 Height 5 ft 3 in Weight 144 lb 3 oz BMI 25.5 BP 110/74 Blood Pressure Location Lt brachial Position Sitting Pulse 61 Pulse Source Pulse Oximeter Temp 98.1 F Pulse Oximetry (%) 96 Oxygen Delivery Method Room Air Intake Visit Reasons: Annual PE Allergies ibuprofen Allergy (Unknown, Verified 03/29/24 10:30) Unknown buspirone [From BuSpar] Adverse Reaction (Verified 03/29/24 10:30) Irritability Medication List - Last Reconciled 07/26/24 by Amber Green MD atorvastatin 10 mg PO BEDTIME coenzyme Q10 50 mg PO DAILY pantoprazole 40 mg PO DAILY Tobacco use date assessed: 03/29/24 Dental Screening Dental Screen Date: 03/29/24 HPI Annual PE HPI Details History of Present Illness - The patient is a 48-year-old female pr esenting for a wellness visit and medication management. - The patient reports a diagnosis of gas troesophageal reflux disease which was evaluated with a barium swallow test, showing reflux with no other abnormalities. Patient is established with [facility] management through them, scheduled to have EGD and colonoscopy this year - The patient has a past diagnosis of fo leydi segmental glomerulosclerosis, currently in remission, and states she has not seen her creative writing teacher in five years. - Laboratory findings indicate prediabet es, with a discussion on monitoring liver enzymes every six months due to atorvastatin usage. - A prior mammogram was conducted in [place], with the patient adhering to annual screenings. - The last colonoscopy was not performed last year but is planned for September. - The patient has a smoking history star anna from age 14 and currently smokes a pack a day, with intentions to quit discussed with her spouse. Medical History: - Gastroesophageal Reflux Disease - Focal Segmental Glomerulosclerosis in remission - Prediabetes - Hyperlipidemia - tobacco dependence Social History: - Commenced smoking at age 14, currently approximately one pack per day. - The patient is discussing smoking cess ation with her , who also smokes. Health Maintenance - Overdue for tetanus, pneumonia, and sh ingles vaccinations. Discussion surrounding scheduling these vaccinations at a local pharmacy. - The patient is due for fasting blood l abs for cholesterol and metabolic analysis, including a liver enzyme check. - Recommendations for a lung screening a t age 53 based on the long history of smoking. - Mammograms are conducted annually with the next due date to be scheduled. - Plans for a colonoscopy and an endosco py this year for gastrointestinal health monitoring. [facility] - [facility], [facility] Medications - Atorvastatin 10 mg, for hyperlipidemia - Omeprazole, [id number], managing gastroesophageal reflux disease - Coenzyme Q10 supplement, for cholester ol management Diagnostic results - Labs: Comprehensive Blood Count in Dec [facility], normal results. Patient Instructions - Contact your warp spinner to res olve the prescription issue for omeprazole. - Schedule and attend fasting labs for c holesterol and metabolic monitoring. - Follow up with your creative writing teacher, beto guzman given the history of focal segmental glomerulosclerosis. - Obtain tetanus, pneumonia, and shingle s vaccinations from the pharmacy when ready. - Write down future appointments and lab tests for better recall. Follow-up six-month physical exam 1 year Review of Systems - General: No fever no chills - Neurological: No headaches no dizzin ess - Ear nose throat: No sore throat no hearing difficulty no ear pain - Cardiovascular: No syncope, no chest pain, no palpitations - Gastrointestinal: No nausea vomiting or diarrhea - Endocrine: No polyuria polydipsia no heat intolerance - Genitourinary: No dysuria - Skin: No new complaints Physical Exam General: Cooperative, healthy appearing, comfortable, no acute distress Orientation: Patient oriented x3 Limitations: None Head: Normal to inspection Ears: Within normal limit visually Nose: Normal external nose present Face and sinus: Normal facial exam Eyes: Appearance normal, extraocular movement intact pupils reactive Neck: Normal visual inspection and supple Respiratory: Normal respiratory effort and able to speak in complete sentences. Clear to auscultation, no stridor Cardiovascular: S1 and S2 RRR Breast exam through OBGYN as per patient GI: Normal to inspection. 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 Mother No problems noted. Maternal Grandfather Cardiac arrest Maternal Grandmother Diabetes mellitus Paternal Grandmother History of heart attack Heart problem Paternal Grandfather Colon cancer Brother No problems noted. Sister No problems noted. Son No problems noted. Social History Housing: House Alcohol intake: current Alcohol intake frequency: a few times a week Patient Tobacco Use Status: Current everyday Tobacco user Tobacco use type: Cigarette Cigarette Packs Per Day: 1 Cigarettes Per Day: 20 Years Smoked: 20 e-Cigarette/Vaping Use: Never Used service: No Current occupational status: employed Cognitive needs: No Hearing needs: No Vision needs: No Questionnaire PHQ-9 Over the last 2 weeks, how often have you been bothered by any of the following problems? 1. Little interest or pleasure in doing things: not at all 2. Feeling down, depressed, or hopeless: not at all 3. Trouble falling or staying asleep, or sleeping too much: not at all 4. Feeling tired or having little energy: several days 5. Poor appetite or overeating: not at all 6. Feeling bad about yourself - or that you are a failure or have let yourself or your family down: not at all 7. Trouble concentrating on things, such as reading the newspaper or watching television: not at all 8. Moving or speaking so slowly that other people could have noticed. Or the opposite - being so fidgety or restless that you have been moving around a lot more than usual: not at all 9. Thoughts that you would be better off or of hurting yourself in some way: not at all Total score: 1 Depression Screening Interpretation: Negative Depression Screening Done: Yes 64074 - PHQ-9 Billing: Yes Source: Developed by Drs. Cristobal Langston, Mary Francois, Fish Rodriguez and colleagues, with an educational pool from [employer]. Thrive Questionnaire Date Thrive assessed: 03/22/24 I am a: Patient What is your living situation today?: I have a steady place to live Within the past 12 months, did the food you bought not last and you didn't have the money to get more?: Never true Within the past 12 months, did you worry whether your food would run out before you got money to buy more?: Never true Do you have trouble paying for medicines?: No Do you have trouble getting transportation to medical appointments?: No Do you have trouble paying your heating and electricity bill?: No Do you have trouble taking care of your child, family member or friend?: No Do you have trouble with day-to-day activities such as bathing, preparing meals, shopping, managing finances, etc.?: No Are you currently unemployed and looking for a job?: No Are you interested in more education?: Yes Please select the resources that you would like help with: None Currently or been in a relationship where the following occur: No concerns reported THRIVE Score: 0 JUDIE-7 AMB Questionnaire JUDIE-7 Date JUDIE - 7 assessed: 03/29/24 Source: Developed by Drs. Cristobal Langston, Mary Francois, Fish Rodriguez and colleagues, with an educational pool from [employer]. Physical exam (Primary Care) Vital Signs: Last Vital Signs Temp 98.1 F 07/26/24 09:52 Pulse 61 07/26/24 09:52 BP 110/74 07/26/24 09:52 Pulse Ox 96 07/26/24 09:52 Oxygen Delivery Method Room Air 07/26/24 09:52 BMI result Body Mass Index 25.5 Tobacco/Smoking Status: Tobacco use Status Tobacco use date assessed 03/29/24 07/26/24 09:56 Patient Tobacco Use Status Current everyday Tobacco 07/26/24 09:56 Tobacco use type Cigarette 07/26/24 09:56 e-Cigarette/Vaping Use Never Used 07/26/24 09:56 Depression Screening Interpretation: Negative Thrive Assessment: Date of Thrive Assessment Date Thrive assessed 03/22/24 07/26/24 09:56 Currently or been in a relationship where the following occur: No concerns reported Coding Level of Care Code Est Pt Level 3 (52846) Est Pt Prev Care 40-64y(41511) Diagnoses Encounter for general adult medical examination with abnormal findings Z00.01 Lipid disorder E78.9 Prediabetes R73.03 Focal segmental glomerulosclerosis N05.1 Chronic GERD K21.9 Immunizations incomplete Z28.39 Additional Codes PHQ-9 - 22260 - PHQ-9 Billing: Yes ([id number]) Assessment & Plan Assessment & Plan (1) Encounter for general adult medical examination with abnormal findings: Code(s): Z00.01 - Encounter for general adult medical examination with abnormal findings Category: Medical (2) Lipid disorder: Code(s): E78.9 - Disorder of lipoprotein metabolism, unspecified Category: Medical (3) Prediabetes: Code(s): R73.03 - Prediabetes Category: Medical (4) Focal segmental glomerulosclerosis: Code(s): N05.1 - Unspecified nephritic syndrome with focal and segmental glomerular lesions Category: Medical (5) Chronic GERD: Code(s): K21.9 - Gastro-esophageal reflux disease without esophagitis Category: Medical (6) Immunizations incomplete: Code(s): Z28.39 - Other underimmunization status Category: Medical Plan History of Present Illness - The patient is a 48-year-old female presenting for a wellness visit and medication management. - The patient reports a diagnosis of gastroesophageal reflux disease which was evaluated with a barium swallow test, showing reflux with no other abnormalities. Patient is established with [facility] management through them, scheduled to have EGD and colonoscopy this year - The patient has a past diagnosis of focal segmental glomerulosclerosis, currently in remission, and states she has not seen her creative writing teacher in five years. - Laboratory findings indicate prediabetes, with a discussion on monitoring liver enzymes every six months due to atorvastatin usage. - A prior mammogram was conducted in March, with the patient adhering to annual screenings. - The last colonoscopy was not performed last year but is planned for September. - The patient has a smoking history starting from age 14 and currently smokes a pack a day, with intentions to quit discussed with her spouse. Medical History: - Gastroesophageal Reflux Disease - Focal Segmental Glomerulosclerosis in remission - Prediabetes - Hyperlipidemia - tobacco dependence Social History: - Commenced smoking at age 14, currently approximately one pack per day. - The patient is discussing smoking cessation with her , who also smokes. Health Maintenance - Overdue for tetanus, pneumonia, and shingles vaccinations. Discussion surrounding scheduling these vaccinations at a local pharmacy. - The patient is due for fasting blood labs for cholesterol and metabolic an alysis, including a liver enzyme check. - Recommendations for a lung screening at age 53 based on the long history of smoking. - Mammograms are conducted annually with the next due date to be scheduled. - Plans for a colonoscopy and an endoscopy this year for gastrointestinal health monitoring. [facility] - [facility] Medications - Atorvastatin 10 mg, for hyperlipidemia - Omeprazole, [id number], managing gastroesophageal reflux disease - Coenzyme Q10 supplement, for cholesterol management Diagnostic results - Labs: Comprehensive Blood Count in December, normal results. Patient Instructions - Contact your warp spinner to resolve the prescription issue for omeprazole. - Schedule and attend fasting labs for cholesterol and metabolic monitoring. - Follow up with your creative writing teacher, especially given the history of focal segmental glomerulosclerosis. - Obtain tetanus, pneumonia, and shingles vaccinations from the pharmacy when ready. - Write down future appointments and lab tests for better recall. Follow-up six-month physical exam 1 year
[2024-07-26 09:52] VITALS: BP 110/74; PULSE 61; TEMP 36.7; O2SAT 96; BMI 25.5
--- OUTSIDE RECORDS SUMMARY | 2024-07-26 10:33 | XMS_ITS | Clinical Summary ---
Author Organization [facility] Address [address] [place] [address] Care Team Providers Care Health Care Specialist Name Role Phone Unavailable Primary Care Provider Unavailabl e Social History Tobacco Use Types Packs/Day Years Used Date Smoking Tobacco: Never Assessed Comments Unknown Sex and Gender Information Value Date Recorded Sex Assigned at Not on file Legal Sex Female 9:52 PM EST Gender Identity Not on file Sexual Orientation Not on file Plan of Treatment Health Maintenance Due Date Last Done Comments Breast Cancer Screening 1973 DTaP,Tdap,and Td Vaccines (1 - Tdap) 1992 Hepatitis B Vaccines (1 of 3 - 19+ 3-dose series) 1992 Cervical Cancer Screening: P ap Smear 1994 COVID-19 Vaccine ( - 2023-2 5 season) 2023 Pneumococcal Vaccine: 50+ Ye ars (1 of 1 - PCV) 11/24/2023 Zoster Vaccines (1 of 2) 11/24/2023 Influenza Vaccine (Season Ended) 2024 HIB Vaccines Aged Out No longer eligi ble based on patient's age to complete this topic HPV Vaccines Aged Out No longer eligi ble based on patient's age to complete this topic Hepatitis A Vaccines Aged Out No long er eligible based on patient's age to complete this topic IPV Vaccines Aged Out No longer eligi ble based on patient's age to complete this topic MMR Vaccines Aged Out No longer eligi ble based on patient's age to complete this topic Meningococcal ACWY Vaccine Aged Out N o longer eligible based on patient's age to complete this topic Meningococcal B Vaccine Aged Out No l onger eligible based on patient's age to complete this topic Pneumococcal Vaccine: Pediat rics (0 to 5 Years) and At-Risk Patients (6 to 64 Years) Aged Out No longer eligible b ased on patient's age to complete this topic RSV Immunization Patients Un raymon 20 months Aged Out No longer eligible b ased on patient's age to complete this topic Varicella Vaccines Aged Out No longer eligible based on patient's age to complete this topic
== END 2024-07-26 10:16 | disposition home or self-care (01) ==
LOC: HO.HMCC 09:51
PROVIDERS: PCP Internal Medicine; Visit Provider Internal Medicine
DX: Z00.01 Encounter for general adult medical examination with abnormal findings (principal); E78.9 Disorder of lipoprotein metabolism, unspecified; R73.03 Prediabetes; N05.1 Unspecified nephritic syndrome with focal and segmental glomerular lesions; K21.9 Gastro-esophageal reflux disease without esophagitis; Z28.39 Other underimmunization status

== ENCOUNTER → 2024-07-26 09:50 | Outpatient (BNVA) | payer OTHER, SELFPAY | PROVIDERS: PCP Internal Medicine; Visit Provider Internal Medicine | DX: Z00.01 Encounter for general adult medical examination with abnormal findings (principal); K21.9 Gastro-esophageal reflux disease without esophagitis; E78.9 Disorder of lipoprotein metabolism, unspecified; R73.03 Prediabetes; N05.1 Unspecified nephritic syndrome with focal and segmental glomerular lesions; Z28.39 Other underimmunization status | CPT/HCPCS: 96127 ==

== ENCOUNTER 2024-10-18 08:23 | Outpatient (AMB) | payer OTHER, SELFPAY ==
[2024-10-18 08:26] VITALS: BP 110/72; PULSE 73; O2SAT 97; BMI 25.0
--- NOTE | 2024-10-18 08:26 | MHC.PC.OV ---
Vital Signs 10/18/24 08:26 Height 5 ft 3 in Weight 141 lb BMI 25.0 BP 110/72 Blood Pressure Location Lt brachial Position Sitting Pulse 73 Pulse Source Pulse Oximeter Pulse Oximetry (%) 97 Intake Visit Reasons: tryuing to quite smoking Allergies ibuprofen Allergy (Unknown, Verified 10/18/24 08:26) Unknown buspirone (From BuSpar) Adverse Reaction (Verified 10/18/24 08:26) Irritability Medication List - Last Reconciled 10/18/24 by Amber Green MD atorvastatin 10 mg PO BEDTIME coenzyme Q10 50 mg PO DAILY pantoprazole 40 mg PO DAILY Tobacco use date assessed: 03/29/24 Dental Screening Dental Screen Date: 03/29/24 HPI tryuing to quite smoking HPI Details History The patient is a 48 year old female presenting with smoking cessation and chest discomfort. Smoking cessation: - Patient is currently smoking 20 cigarettes daily. - Previous attempt to quit smoking with Chantix 15 years ago was successful; experienced mild side effects such as weird dreams. - Patient's recently quit smoking. - Patient aims to stop smoking and does not prefer nicotine patches, has negative past experience with Wellbutrin. Chest discomfort: - Episode occurred on August 21 while working from home, reported feeling like having a heart attack. - Experienced tight pressure in the chest that radiated to the jaw and downwards. - Episode lasted approximately three minutes followed by two and a half hours of sleep. - Did not seek medical attention at the time due to embarrassment concerns. Medical History: - Lipid disorder, managed with atorvastatin. Medications: - Atorvastatin 10 mg daily for lipid disorder. - Coenzyme Q10, supplement. - Pantoprazole 40 mg, unspecified use. Social History: - Works from home. - Smokes 20 cigarettes per day, seeking cessation. - quit smoking recently. - No alcohol or illicit drug use discussed. - No exercise or diet details provided. Problem List - Tobacco use disorder - Chest discomfort - Lipid disorder Diagnostic results - EKG shows normal sinus rhythm without acute changes. Patient Instructions - Take prescribed Chantix as directed to aid smoking cessation. - Monitor smoking cessation progress and communicate outcomes. - Undergo further tests as recommended including echocardiogram and stress test for cardiac health. - Routine follow-up after tests. Review of Systems General: No fever no chills neurological: No headaches no dizziness ear nose throat: No sore throat no hearing difficulty no ear pain cardiovascular: No syncope, no palpitations gastrointestinal: No nausea vomiting or diarrhea endocrine: No polyuria polydipsia no heat intolerance genitourinary: No dysuria skin: No new complaints Physical Exam general: No acute distress HEENT: No acute findings neck: Supple respiratory system: Able to talk in full sentences, no audible wheeze no stridor cardiovascular: S1-S2 RRR, EKG shows normal sinus rhythm gastrointestinal: No pain extremities: No new findings 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 Mother No problems noted. Maternal Grandfather Cardiac arrest Maternal Grandmother Diabetes mellitus Paternal Grandmother History of heart attack Heart problem Paternal Grandfather Colon cancer Brother No problems noted. Sister No problems noted. Son No problems noted. Social History Housing: House Alcohol intake: current Alcohol intake frequency: a few times a week Patient Tobacco Use Status: Current everyday Tobacco user Tobacco use type: Cigarette Cigarette Packs Per Day: 1 Cigarettes Per Day: 20 Years Smoked: 20 Packs Per Year: 20 Packs per year/per ci.00 e-Cigarette/Vaping Use: Never Used service: No Current occupational status: employed Cognitive needs: No Hearing needs: No Vision needs: No Questionnaire Thrive Questionnaire Date Thrive assessed: 03/22/24 I am a: Patient What is your living situation today?: I have a steady place to live Within the past 12 months, did the food you bought not last and you didn't have the money to get more?: Never true Within the past 12 months, did you worry whether your food would run out before you got money to buy more?: Never true Do you have trouble paying for medicines?: No Do you have trouble getting transportation to medical appointments?: No Do you have trouble paying your heating and electricity bill?: No Do you have trouble taking care of your child, family member or friend?: No Do you have trouble with day-to-day activities such as bathing, preparing meals, shopping, managing finances, etc.?: No Are you currently unemployed and looking for a job?: No Are you interested in more education?: Yes Please select the resources that you would like help with: None Currently or been in a relationship where the following occur: No concerns reported THRIVE Score: 0 JUDIE-7 AMB Questionnaire JUDIE-7 Date JUDIE - 7 assessed: 03/29/24 Source: Developed by Drs. Cristobal Langston, Mary Francois, Fish Rodriguez and colleagues, with an educational pool from [employer]. Physical exam (Primary Care) Vital Signs: Last Vital Signs Pulse 73 10/18/24 08:26 BP 110/72 10/18/24 08:26 Pulse Ox 97 10/18/24 08:26 BMI result Body Mass Index 25.0 Tobacco/Smoking Status: Tobacco use Status Tobacco use date assessed 03/29/24 10/18/24 08:30 Patient Tobacco Use Status Current everyday Tobacco 10/18/24 08:30 Tobacco use type Cigarette 10/18/24 08:30 e-Cigarette/Vaping Use Never Used 10/18/24 08:30 Thrive Assessment: Date of Thrive Assessment Date Thrive assessed 03/22/24 10/18/24 08:30 Currently or been in a relationship where the following occur: No concerns reported Office Procedures EKG 45128-[id number], Complete Coding Level of Care Code Est Pt Level 5 (39786) Diagnoses Chest pain, unspecified type R07.9 Chest pain type: unspecified Tobacco use Z72.0 Lipid disorder E78.9 Prediabetes R73.03 CPT Codes EKG - CPT: 13245-[id number], Complete ([id number]) Time Spent (min) 40 Comment Reviewing chart/labs/EKG/boid-gc-ujik/coordination of care Assessment & Plan Assessment & Plan (1) Chest pain: Code(s): R07.9 - Chest pain, unspecified Category: Medical Qualifiers: Chest pain type: unspecified Qualified Code(s): R07.9 - Chest pain, unspecified (2) Tobacco use: Code(s): Z72.0 - Tobacco use Category: Social Hx (3) Lipid disorder: Code(s): E78.9 - Disorder of lipoprotein metabolism, unspecified Category: Medical (4) Prediabetes: Code(s): R73.03 - Prediabetes Category: Medical Plan History The patient is a 48 year old female presenting with smoking cessation and chest discomfort. Smoking cessation: - Patient is currently smoking 20 cigarettes daily. - Previous attempt to quit smoking with Chantix 15 years ago was successful; experienced mild side effects such as weird dreams. - Patient's recently quit smoking. - Patient aims to stop smoking and does not prefer nicotine patches, has negative past experience with Wellbutrin. Chest discomfort: - Episode occurred on August 21 while working from home, reported feeling like having a heart attack. - Experienced tight pressure in the chest that radiated to the jaw and downwards. - Episode lasted approximately three minutes followed by two and a half hours of sleep. - Did not seek medical attention at the time due to embarrassment concerns. Medical History: - Lipid disorder, managed with atorvastatin. Medications: - Atorvastatin 10 mg daily for lipid disorder. - Coenzyme Q10, supplement. - Pantoprazole 40 mg, unspecified use. Social History: - Works from home. - Smokes 20 cigarettes per day, seeking cessation. - quit smoking recently. - No alcohol or illicit drug use discussed. - No exercise or diet details provided. Problem List - Tobacco use disorder - Chest discomfort - Lipid disorder Diagnostic results - EKG shows normal sinus rhythm without acute changes. Patient Instructions - Take prescribed Chantix as directed to aid smoking cessation. - Monitor smoking cessation progress and communicate outcomes. - Undergo further tests as recommended including echocardiogram and stress test for cardiac health. - undergo pulmonary function test - Routine follow-up after tests. Orders: Orders Complete Blood Count Auto Diff Today E78.9 - Disorder of lipoprotein metabolism, unspecified, R07.9 - Chest pain, unspecified, R73.03 - Prediabetes, Z72.0 - Tobacco use Comprehensive Met. Panel Today E78.9 - Disorder of lipoprotein metabolism, unspecified, R07.9 - Chest pain, unspecified, R73.03 - Prediabetes, Z72.0 - Tobacco use TSH reflex Free T4 Today E78.9 - Disorder of lipoprotein metabolism, unspecified, R07.9 - Chest pain, unspecified, R73.03 - Prediabetes, Z72.0 - Tobacco use CA stress test Today E78.9 - Disorder of lipoprotein metabolism, unspecified, R07.9 - Chest pain, unspecified, Z72.0 - Tobacco use PFT pulmonary function test Today Z72.0 - Tobacco use Hemoglobin A1c Today E78.9 - Disorder of lipoprotein metabolism, unspecified, R07.9 - Chest pain, unspecified, R73.03 - Prediabetes, Z72.0 - Tobacco use LDL Cholesterol Direct Today E78.9 - Disorder of lipoprotein metabolism, unspecified, R07.9 - Chest pain, unspecified, R73.03 - Prediabetes, Z72.0 - Tobacco use CA echo transthoracic complete Today E78.9 - Disorder of lipoprotein metabolism, unspecified, R07.9 - Chest pain, unspecified, Z72.0 - Tobacco use Medications: New varenicline tartrate (Chantix Starting Month Box) PO PER PKG DIR 53 ea 0RF
--- OUTSIDE RECORDS SUMMARY | 2024-10-18 09:09 | XMS_ITS | Clinical Summary ---
Author Organization [facility] ity Address [address] [place] [address] Care Team Providers Care Die Forger Name Role Phone Unavailable Primary Care Provider [...] 11/24/2023 Zoster Vaccines (1 of 2) 11/24/2023 Depression Screening 02/21/2024 Influenza Vaccine (#1) 2024 HIB Vaccines Aged Out No longer [...]
== END 2024-10-18 09:34 | disposition home or self-care (01) ==
LOC: HO.HMCC 08:24
PROVIDERS: PCP Internal Medicine; Visit Provider Internal Medicine
DX: R07.9 Chest pain, unspecified (principal); Z72.0 Tobacco use; E78.9 Disorder of lipoprotein metabolism, unspecified; R73.03 Prediabetes

== ENCOUNTER → 2024-10-18 08:23 | Outpatient (BNVA) | payer OTHER, SELFPAY | PROVIDERS: PCP Internal Medicine; Visit Provider Internal Medicine | DX: R73.03 Prediabetes (principal); R07.9 Chest pain, unspecified; F17.210 Nicotine dependence, cigarettes, uncomplicated; R78.9 Finding of unspecified substance, not normally found in blood; Z71.6 Tobacco abuse counseling | CPT/HCPCS: 93005 ==

== ENCOUNTER 2025-02-07 12:56 | Outpatient (AMB) | payer OTHER, SELFPAY ==
[2025-02-07 12:57] VITALS: BP 122/70; PULSE 74; O2SAT 98; BMI 27.8
--- NOTE | 2025-02-07 12:57 | A.OFFPC_ITS ---
Vital Signs 02/07/25 12:57 Height 5 ft 3 in Weight 157 lb BMI 27.8 BP 122/70 Blood Pressure Location Lt brachial Position Sitting Pulse 74 Pulse Source Pulse Oximeter Pulse Oximetry (%) 98 Intake Visit Reasons: 6 mths f/u Allergies ibuprofen Allergy (Unknown, Verified 02/07/25 12:57) Unknown buspirone (From BuSpar) Adverse Reaction (Verified 02/07/25 12:57) Irritability Medication List - Last Reconciled 02/07/25 by Amber Green MD atorvastatin 10 mg PO BEDTIME coenzyme Q10 50 mg PO DAILY pantoprazole 40 mg PO DAILY Tobacco use date assessed: 03/29/24 Dental Screening Dental Screen Date: 03/29/24 HPI HPI Comments History of Present Illness Details History of Present Illness The patient is a 49-year-old female presenting for a follow-up visit with primary concerns of weight gain after quitting smoking and a recent illness. Weight Gain: - The patient's primary concern is weigh t gain since quitting smoking, which has increased from a baseline of 144 lbs to her current weight of 157 lbs, resulting in a 13-pound gain. - She reports that none of her clothes f it, causing her significant distress, and she inquired about weight loss injections. - Her height is 5'3 and her BMI is 27.8 . - She describes her lifestyle as sedenta ry. Acute Upper Respiratory Infection: - The patient has been sick since Monday of this week. - Symptoms began with body aches and a l ow-grade fever for the first two days, which have since transitioned to head cold symptoms. - She has been self-treating with over-t he-counter decongestants. Health Maintenance: - The patient forgot to get her lab work done after her last visit over a year ago. - She states she will have the non-fasti ng labs drawn today, which are needed to assess liver and kidney function before her medications can be refilled. - She expresses concern about memory iss ues due to forgetting to complete the labs. Medical History: - History of tobacco use, recently quit. - Hypercholesterolemia mentioned but sta tus not detailed. . Social History: - Substance Use: The patient is a former smoker who recently quit. - Exercise: She reports a sedentary life style with not much exercise. - Nutrition: The patient does not feel s he is overeating but acknowledges her calorie intake must be higher than her expenditure. Diagnostic Results: - Vitals: Weight 157 lbs, Height 5'3 , B KS 27.8. - Pending Labs: Non-fasting labs for chely er and kidney function are pending. 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 Mother No problems noted. Maternal Grandfather Cardiac arrest Maternal Grandmother Diabetes mellitus Paternal Grandmother History of heart attack Heart problem Paternal Grandfather Colon cancer Brother No problems noted. Sister No problems noted. Son No problems noted. Social History Housing: House Alcohol intake: current Alcohol intake frequency: a few times a week Patient Tobacco Use Status: Current everyday Tobacco user Tobacco use type: Cigarette Cigarette Packs Per Day: 1 Cigarettes Per Day: 20 Years Smoked: 20 e-Cigarette/Vaping Use: Never Used service: No Current occupational status: employed Cognitive needs: No Hearing needs: No Vision needs: No Questionnaire Thrive Questionnaire Date Thrive assessed: 03/22/24 I am a: Patient What is your living situation today?: I have a steady place to live Within the past 12 months, did the food you bought not last and you didn't have the money to get more?: Never true Within the past 12 months, did you worry whether your food would run out before you got money to buy more?: Never true Do you have trouble paying for medicines?: No Do you have trouble getting transportation to medical appointments?: No Do you have trouble paying your heating and electricity bill?: No Do you have trouble taking care of your child, family member or friend?: No Do you have trouble with day-to-day activities such as bathing, preparing meals, shopping, managing finances, etc.?: No Are you currently unemployed and looking for a job?: No Are you interested in more education?: Yes Please select the resources that you would like help with: None Currently or been in a relationship where the following occur: No concerns reported THRIVE Score: 0 JUDIE-7 AMB Questionnaire JUDIE-7 Date JUDIE - 7 assessed: 03/29/24 Source: Developed by Drs. Cristobal Langston, Mary Francois, Fish Rodriguez and colleagues, with an educational pool from [employer]. Review of Systems Narrative Review of Systems - General: No fever no chills - Neurological: No headaches no dizziness - Ear nose throat: No sore throat no hearing difficulty no ear pain - Cardiovascular: No syncope, no chest pain, no palpitations - Gastrointestinal: No nausea vomiting or diarrhea - Endocrine: No polyuria polydipsia no heat intolerance - Genitourinary: No dysuria , no blood in urine Physical exam (Primary Care) Vital Signs: Last Vital Signs Pulse 74 02/07/25 12:57 BP 122/70 02/07/25 12:57 Pulse Ox 98 02/07/25 12:57 BMI result Body Mass Index 27.8 Tobacco/Smoking Status: Tobacco use Status Tobacco use date assessed 03/29/24 02/07/25 12:57 Patient Tobacco Use Status Current everyday Tobacco 02/07/25 12:57 Tobacco use type Cigarette 02/07/25 12:57 e-Cigarette/Vaping Use Never Used 02/07/25 12:57 Thrive Assessment: Date of Thrive Assessment Date Thrive assessed 03/22/24 02/07/25 12:57 Currently or been in a relationship where the following occur: No concerns reported Narrative Physical Exam General: No acute distress HEENT: No acute findings Neck: Supple Respiratory system: Able to talk in full sentences, no audible wheeze Cardiovascular: S1-S2 regular in rate and rhythm Gastrointestinal: No pain, no nausea or vomiting Extremities: No new findings, no swelling of ankles 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: Alert awake oriented x3 motor intact Skin: Normal turgor Coding Level of Care Code Est Pt Level 4 (69091) Diagnoses Lipid disorder E78.9 Prediabetes R73.03 Overweight E66.3 Chronic GERD K21.9 Time Spent (min) 30 Comment mostly face to face discussing weight managment/diet Assessment & Plan Assessment & Plan (1) Lipid disorder: Code(s): E78.9 - Disorder of lipoprotein metabolism, unspecified Category: Medical (2) Prediabetes: Code(s): R73.03 - Prediabetes Category: Medical (3) Overweight: Code(s): E66.3 - Overweight Category: Medical (4) Chronic GERD: Code(s): K21.9 - Gastro-esophageal reflux disease without esophagitis Category: Medical Plan Problem List - Overweight - Acute upper respiratory infection - History of tobacco use - Subjective memory complaint - Health maintenance - GERD chronic - lipid disorder - prediabetes / diet control Plan - Labs: The patient will proceed for non-fasting lab work today to assess liver and kidney function. - Medication Management: Prescription medication refills are being held until lab results are reviewed. - Weight Management: The patient was counseled on diet and nutrition for weight loss. - Weight Management: Advised to reduce caloric intake to 1300 calories per day to lose 0.5 pounds per week. - Weight Management: Recommended to consume 3 to 5 ounces of protein daily, use a kitchen scale for portion control, and start counting calories. - Weight Management: The patient's request for weight loss injections was declined as she does not meet the clinical criteria (BMI < 30). - Acute Upper Respiratory Infection: Recommended to continue management with [id number] decongestants for symptomatic relief. - Follow-up: The patient has a scheduled physical exam in July. Medications: On Hold pantoprazole Hold Comment: Doctor's Order 40 mg PO DAILY 90 tabs 2RF atorvastatin Hold Comment: Doctor's Order 10 mg PO BEDTIME 90 tabs 1RF
--- OUTSIDE RECORDS SUMMARY | 2025-02-07 14:44 | XMS_ITS | Clinical Summary ---
Author Organization [facility] ity Address [address] [place] [address] Care Team Providers Care Compensation Intern Name Role Phone Unavailable Primary Care Provider [...] Cervical Cancer Screening: P ap Smear 1994 Pneumococcal Vaccine: 50+ Ye ars (1 of 1 - PCV) 11/24/2023 Zoster Vaccines (1 of 2) 11/24/2023 Depression Screening 02/21/2024 COVID-19 Vaccine (1 - 2024-2 6 season) 2024 Influenza Vaccine (#1) 2024 RSV Immunization Adult Patie nts (1 - 1-dose 75+ series) 2048 HIB Vaccines Aged Out No longer eligi [...]
== END 2025-02-07 13:22 | disposition home or self-care (01) ==
LOC: HO.HMCC 12:56
PROVIDERS: PCP Internal Medicine; Visit Provider Internal Medicine
DX: E78.9 Disorder of lipoprotein metabolism, unspecified (principal); R73.03 Prediabetes; E66.3 Overweight; K21.9 Gastro-esophageal reflux disease without esophagitis

== ENCOUNTER 2025-02-07 12:56 | Outpatient (REF) | payer OTHER, SELFPAY ==
[2025-02-07 16:55] LABS: MANUAL DIFF FLAG NO
[2025-02-07 17:01] LABS: Hematocrit 42.0 % (37.0-47.0); Hemoglobin 13.7 g/dl (12.0-16.0); Imm Gran Abs Auto 0.02 X10*3/uL (0.00-0.03); Imm Gran Pct Auto 0.4 % (0.0-0.4); Lymphocytes Absolute Auto 2.3 X10*3/uL (1.2-4.9); Mean Corpuscular HGB Conc 32.6 g/dl (31.0-35.0); Mean Corpuscular Hemoglobin 29.4 pg (27.0-33.0); Mean Corpuscular Volume 90.1 fL (80.0-98.0); NRBC Abs Auto 0.000 X10*3/uL (0.0-0.012); NRBC Pct Auto 0.0 /100WBC (0.0-0.2); Platelet Count 278 X10*3/uL (160-400); Red Blood Count 4.66 X10*6/uL (4.20-5.50); SCAN SMEAR FLAG 1; White Blood Count 5.5 X10*3/uL (4.8-10.8)
[2025-02-07 18:13] LABS: Alanine Aminotransferase 32 U/L (0-31); Albumin Level 4.7 g/dL (3.5-5.0); Alkaline Phosphatase 78 U/L (39-117); Anion Gap 11 (12-20); Aspartate Amino Transferase 27 U/L (5-31); Blood Urea Nitrogen 13 mg/dL (9-16); Calcium 9.5 mg/dL (8.4-10.2); Carbon Dioxide 30 mmol/L (22-29); Chloride 106 mmol/L (96-108); Estimated Glomerular Filt Rate 55; Potassium 4.2 mmol/L (3.3-5.1); Sodium 143 mmol/L (135-145); Total Protein 7.5 g/dL (6.5-8.0)
== END 2025-02-07 12:57 | disposition home or self-care (01) ==
LOC: HO.HMGCLDS 12:56
PROVIDERS: PCP Internal Medicine; Visit Provider Internal Medicine
DX: Z72.0 Tobacco use (principal); R73.03 Prediabetes; E78.9 Disorder of lipoprotein metabolism, unspecified; R07.9 Chest pain, unspecified; K21.9 Gastro-esophageal reflux disease without esophagitis
CPT/HCPCS: 36415; 80053; 83036; 83721; 84443; 85025